=== PATIENT | female | born 1975 | race Hispanic/Latino ===

== ENCOUNTER 2020-10-05 07:13 | Day surgery (SDC) | payer BC ==
[2020-10-05] MEDS ORDERED: ASPIRIN EC 325 MG TAB PO ONE (07:52)
[2020-10-05] MEDS ORDERED: SODIUM CHLORIDE 0.9% 500 ML 500 ML IV SCH (08:00)
[2020-10-05 08:27] LABS: Basophils # (Auto) 0.1 K/mm3 (0.0-0.1); Basophils % (Auto) 0.7 % (0.0-1.8); Eosinophils # (Auto) 0.2 K/mm3 (0.0-0.4); Eosinophils % (Auto) 2.4 % (0.0-4.3); Hematocrit 40.8 % (30.3-42.9); Hemoglobin 14.1 gm/dl (10.1-14.3); Lymphocytes # (Auto) 1.6 K/mm3 (1.2-5.4); Lymphocytes % (Auto) 20.9 % (13.4-35.0); Mean Corpuscular HGB Conc 35 % (30-34); Mean Corpuscular Volume 86 fl (79-97); Monocytes # (Auto) 0.5 K/mm3 (0.0-0.8); Monocytes % (Auto) 6.1 % (0.0-7.3); Platelet Count 188 K/mm3 (140-440); Red Blood Count 4.77 M/mm3 (3.65-5.03)
[2020-10-05] MEDS ORDERED: fentaNYL 100 MCG/2 ML INJ ONE (08:33)
[2020-10-05] MEDS ORDERED: MIDAZOLAM 2 MG/2 ML INJ ONE (08:33)
[2020-10-05] MEDS ORDERED: HEPARIN/NS 5000 UNIT/500ML 1,000 ML IR ONE (08:33)
[2020-10-05] MEDS ORDERED: HEPARIN 10,000 UNITS/10 ML VIAL ONE (08:33)
[2020-10-05] MEDS ORDERED: VERAPAMIL 5 MG/2 ML INJ ONE (08:34)
[2020-10-05] MEDS ORDERED: LIDOCAINE (2%) 20 MG/1 ML VIAL 20 ML MDV INFILTRATI ONE (08:34)
[2020-10-05] MEDS ORDERED: NITROGLYCERIN SYRINGE 3 ML ONE (08:34)
[2020-10-05 08:42] LABS: Blood Urea Nitrogen 14 mg/dL (7-17); Calcium 8.7 mg/dL (8.4-10.2); Hemolysis Index 5; INR 0.97 (0.87-1.13)
[2020-10-05 09:16] LABS: BUN/Creatinine Ratio 23
--- NOTE | 2020-10-05 10:58 | Cardiac Catherization Report ---
LEFT HEART CATHETERIZATION ORDERING PHYSICIAN: Dr. Hoskins. CLINICAL INFORMATION: This is a 45-year-old female with morbid obesity, paroxysmal AFib. Has abnormal stress test with anterior ischemia, is here for left heart catheterization. Procedure was done with moderate sedation. START TIME: 1031 hours. STOP TIME: 1041 time. Ten minutes of moderate sedation. DESCRIPTION OF PROCEDURE: Procedure was done via the right radial artery, sterile technique, local anesthesia, 6-Fijian radial sheath inserted. Left system, JL3.5 catheter. Left main is a medium to large caliber vessel, is patent. ____ medium caliber vessel, then it goes into a small to medium caliber vessel with moderate to severe tortuosity. Diagonal 1 is small to medium caliber vessel, is patent with moderate tortuosity. Circumflex is a large caliber vessel, is patent. OM1 and OM2, medium caliber vessel, is dominant. Circumflex is a large caliber vessel, goes into a large OM1 that is patent. RCA engaged with JR4, is a large dominant vessel, patent from proximally and distally. PDA, PLV are medium caliber vessel, patent. LV gram done in MALAY and FRIEND shows LVEDP at 30 mmHg, LV was 140. Aortic is 135/91, EF 55-60%. No significant gradient across the aortic valve. 5-Fijian catheters all taken over guidewire, 6-Fijian radial sheath was discontinued. Radial band applied. No internal bleeding. SUMMARY: Left main patent, LAD patent, mid to distal small caliber, but moderate tortuosity. Diagonal 1, small to medium caliber vessel, moderate tortuosity. Circumflex is large, goes into large OM1, patent. RCA is a large nondominant vessel, is patent with normal LV function, elevated left end-diastolic pressure, secondary to risk factors and treat medically with normal coronaries. Discussed this with the patient and the patient's family in detail. JOB# [id number] LUKAS/JAMESON
--- NOTE | 2020-10-05 11:01 | Short Stay Summary ---
Short Stay Documentation Date of service: 10/05/20 - History H&P: obtained from office - Allergies and Medications Current Medications: Allergies No Known Allergies Allergy (Verified 10/05/20 07:52) Home Medications Medication Instructions Recorded Confirmed Last Taken Type Albuterol Sulfate [Proair 2 puff INHALATION PRN PRN 10/05/20 10/05/20 09/26/20 History Digihaler] 2 puffs Apixaban [Eliquis] 5 mg PO BID 10/05/20 10/05/20 10/02/20 History 5 mg Fbprre-Uqriesdz-Whq-Cod 50-300 1 tab PO Q4H PRN 10/05/20 10/05/20 09/13/20 History 1 tab Cholecalciferol Vit D3 [Vitamin D3 5,000 units PO DAILY 10/05/20 10/05/20 10/03/20 History 1,000 UNIT TAB] 5000 units Citalopram Hydrobromide 40 mg PO DAILY 10/05/20 10/05/20 10/04/20 History [Citalopram HBr] 40 mg Empagliflozin [Jardiance] 25 mg PO DAILY 10/05/20 10/05/20 10/04/20 History 25 mg LORazepam [Lorazepam] 1 mg PO BID 10/05/20 10/05/20 10/04/20 History 1 mg Meloxicam [Mobic] 15 mg PO DAILY 10/05/20 10/05/20 10/03/20 History 15 mg Metoprolol Xl [Metoprolol 100 mg PO DAILY 10/05/20 10/05/20 10/04/20 History SUCCINATE ER TAB] 100 mg Mirabegron [Myrbetriq] 25 mg PO DAILY 10/05/20 10/05/20 10/04/20 History 25 mg Potassium Chloride [K-Dur] 10 meq PO DAILY 10/05/20 10/05/20 10/04/20 History 10 meq hydroCHLOROthiazide [HCTZ] 25 mg PO HS 10/05/20 10/05/20 10/04/20 History 25 mg methocarbamoL [Methocarbamol] 750 mg PO DAILY 10/05/20 10/05/20 10/03/20 History 750 mg Active Medications Sodium Chloride (Nacl 0.9% 500 Ml) 500 mls @ 50 mls/hr IV DIRECT DES Stop: 10/05/20 17:59 Last Admin: 10/05/20 08:41 Dose: 50 mls/hr Documented by: - Brief post op/procedure progress note Date of procedure: 10/05/20 Pre-op diagnosis: Abnormal Stress Test Post-op diagnosis: other (Normal Coronaries) Procedure: [facility]- see dictated cath report Anesthesia: local Estimated blood loss: none Condition: stable - Disposition Condition at discharge: Good Disposition: DC-01 TO HOME OR SELFCARE - Discharge Diagnoses (1) Normal coronary arteries Status: Chronic (2) HTN (hypertension) Status: Chronic (3) Diabetes mellitus Status: Chronic (4) Paroxysmal atrial fibrillation Status: Chronic (5) Nonsustained paroxysmal supraventricular tachycardia Status: Chronic Short Stay Discharge Plan Activity: advance as tolerated Diet: low fat, low cholesterol, low salt, diabetic Wound: open to air, keep clean and dry, per your surgeon's advice Follow up with: MALLY DELGADO FNP-C [Primary Care Provider] - 7 Days JEANNA BOB MD [Staff Physician] - 7 Days Forms: CardCath PCI D/C Instructions
[2020-10-05 13:31] VITALS: BP 116/52
== END 2020-10-05 14:00 | disposition home or self-care (01) ==
LOC: CATHLABREC 07:13
PROVIDERS: ATTEND Internal Medicine
DX: R94.39 Abnormal result of other cardiovascular function study (principal); I48.0 Paroxysmal atrial fibrillation; I10 Essential (primary) hypertension; E11.9 Type 2 diabetes mellitus without complications; I47.1 Supraventricular tachycardia; G47.30 Sleep apnea, unspecified; F32.9 Major depressive disorder, single episode, unspecified; F41.9 Anxiety disorder, unspecified; Z98.890 Other specified postprocedural states; Z87.01 Personal history of pneumonia (recurrent); Z79.899 Other long term (current) drug therapy; Z80.8 Family history of malignant neoplasm of other organs or systems; Z82.49 Family history of ischemic heart disease and other diseases of the circulatory system
CPT/HCPCS: 36415; 80048; 85025; 85610; 85730; 93005; 93458; 99156; C1894; J1644; J2250; J3010; J7040; Q9967